=== PATIENT | male | born 1965 | race Caucasian/White ===

== ENCOUNTER → 2018-08-02 | Outpatient (CLI) | payer OTHER ==
--- NOTE | 2018-08-03 07:35 | RAD ---
EXAM: Hand,Left 3 Views CLINICAL HISTORY: M79.641, M79.642, M79.644, M79.645. TECHNIQUE: AP, lateral and oblique images of the left hand. COMPARISON STUDY: None FINDINGS: There are very mild osteoarthritic changes at the first metacarpal phalangeal joint and the distal interphalangeal joints. There are subtle periarticular osteophytes and subchondral sclerosis. There are no erosive abnormalities. No fracture or dislocation identified. 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 Electronically signed by: Kar Grey MD 08/03/2018 7:32 AM CDT
--- NOTE | 2018-08-03 07:37 | RAD ---
EXAM: Hand,Right 3 Views CLINICAL HISTORY: M79.641, M79.642, M79.644, M79.645. TECHNIQUE: AP, lateral and oblique images of the right hand. COMPARISON STUDY: None FINDINGS: Very mild osteoarthritic changes are present at the second and third distal interphalangeal joints without erosions. No fracture or dislocation identified. IMPRESSION: Very mild osteoarthritic changes of the second and third distal interphalangeal joints. Electronically signed by: Kar Grey MD 08/03/2018 7:34 AM CDT
== END ==
LOC: RAD 08:28
PROVIDERS: ATTEND Orthopaedic Surgery
DX: M79.641 Pain in right hand (principal); M79.644 Pain in right finger(s)

== ENCOUNTER 2018-08-09 05:37 | Day surgery (SDC) | payer OTHER ==
[2018-08-09] MEDS ORDERED: LACTATED RINGERS 1,000 ML ONE (05:50)
[2018-08-09] MEDS ORDERED: SODIUM CHL 0.9% 100ML MINI-BAG 100 ML IVPB ONE (05:50)
[2018-08-09] MEDS ORDERED: ceFAZolin SODIUM 1 GM VIAL ONE ×2 (05:51→07:08)
[2018-08-09] MEDS ORDERED: MIDAZOLAM INJ 2 MG/2 ML VIAL ONE (06:38)
[2018-08-09] MEDS ORDERED: fentaNYL CITRATE INJ 50 MCG/ML AMP ONE (06:38)
[2018-08-09] MEDS ORDERED: BUPIVACAINE 0.25% INJ 30 ML VIAL INJ ONE (06:39)
[2018-08-09] MEDS ORDERED: methylPREDNISolone ACETATE 80 MG/ML VIAL ONE (06:39)
[2018-08-09] MEDS ORDERED: LIDOCAINE 1% 50 ML VIAL INJ ONE (06:39)
[2018-08-09] MEDS ORDERED: PROPOFOL 200 MG/20 ML VIAL IV ONE (07:00)
[2018-08-09] MEDS ORDERED: LIDOCAINE 1% 10 ML VIAL INJ ONE (07:00)
[2018-08-09 07:08] VITALS: O2SAT 97
[2018-08-09] MEDS ORDERED: VANCOMYCIN HCL INJ 1,000 MG VIAL IVPB ONE (07:08)
[2018-08-09 08:53] VITALS: BP 130/70; TEMP 97
--- NOTE | 2018-08-15 09:57 | OP ---
DATE OF PROCEDURE: 08/09/18 PREOPERATIVE DIAGNOSIS: 1. Left third and fourth triggering. 2. Right third and fourth triggering. POSTOPERATIVE DIAGNOSIS: 1. Left third and fourth triggering. 2. Right third and fourth triggering. PROCEDURE: 1. Left third digit A1 sofy release. 2. Left fourth digit and right third and fourth digit injections. SURGEON: Matty Rossi MD. CLINICAL RESOURCE MANAGER: Reyes Trejo CST, SA-C. ANESTHESIA: Local with sedation. COMPLICATIONS: None. FINDINGS: Triggering at the A1 sofy of the left third, left fourth, right third and right fourth digits. INDICATION: Mr. Ventura has a history of triggering at the above digits. He uses a wheelchair and it was affecting him on a daily basis. Because of the issues associated with the wheelchair use, he elected to undergo both surgical intervention as well as nonsurgical intervention. After discussing the risks, benefits and alternatives to that, the patient has given informed consent for that. PROCEDURE: The patient was brought to the Operating Room and placed in the supine position. Sedation was administered and local anesthetic was injected into the operative area. A mixture of steroid and lidocaine was injected into the left fourth, right third and right fourth digits under sterile conditions. The left hand was sterilely prepped and draped. A transverse incision was made directly overlying the A1 sofy. Blunt dissection was carried down to the A1 sofy, which was sharply transected along its course. Following that, the finger was flexed and extended and there was no clicking, locking or popping. The wound was thoroughly irrigated and closed with Nylon suture. A sterile dressing was placed and the patient was taken to the Day Surgery Unit. POSTOPERATIVE PLAN: The patient has been encouraged to do range of motion of all the digits and will followup with us in two days. #[id number] [facility]
== END 2018-08-09 08:40 | disposition home or self-care (01) ==
LOC: AMB 05:37
PROVIDERS: ATTEND Orthopaedic Surgery
DX: M65.332 Trigger finger, left middle finger (principal); M65.331 Trigger finger, right middle finger; M65.342 Trigger finger, left ring finger; M65.341 Trigger finger, right ring finger; I10 Essential (primary) hypertension; E11.9 Type 2 diabetes mellitus without complications; Z88.8 Allergy status to other drugs, medicaments and biological substances; Z79.84 Long term (current) use of oral hypoglycemic drugs; Z79.899 Other long term (current) drug therapy
CPT/HCPCS: 01810; 26055; 36416; 80307; 82948; 87070; J0690; J1030; J2250; J3010; J3370; J3490; J7050; J7120

== ENCOUNTER → 2019-01-18 | Outpatient (CLI) | payer OTHER | LOC: GMAF 20:28 | PROVIDERS: ATTEND Nurse Practitioner Family | DX: R30.0 Dysuria (principal) ==

== ENCOUNTER → 2019-01-30 | Outpatient (CLI) | payer OTHER ==
--- NOTE | 2019-01-30 16:10 | CT ---
EXAM DESCRIPTION: Abdoment/Pelvis w/o Contrast CLINICAL HISTORY: 54 years Male, HEMATURIA COMPARISON: None available. TECHNIQUE: Contiguous 3 mm axial images were obtained from the lung bases to the level of the proximal femora without the administration of intravenous or oral contrast. Sagittal and coronal reconstructions were reviewed. FINDINGS: Limited evaluation of the solid organs due to the lack of intravenous contrast. THORAX: 4.3 mm noncalcified soft tissue nodule is identified in the right middle lobe. They measure pneumothorax otherwise appears normal. LIVER: The liver demonstrates normal size and density with no intrahepatic biliary ductal dilatation. GALLBLADDER: Multiple gallstones are noted PANCREAS: Appears normal with no cystic or solid lesions. SPLEEN: Normal ADRENAL GLANDS: Normal with no nodules or masses. KIDNEYS: Multiple calculi measuring up to 9 mm are identified throughout the left kidney. The right kidney appears normal. No evidence of bilateral ureteral calculi. STOMACH: Small hiatal hernia. The stomach is not well-distended limiting detailed evaluation. SMALL BOWEL: The small bowel loops demonstrate variable degrees of distention with no abnormal dilatation or other signs to suggest bowel obstruction. LARGE BOWEL: Mild constipation. The appendix is well-visualized and appears normal No evidence of free intraperitoneal air or fluid. RETROPERITONEUM: The abdominal aorta is nonaneurysmal with mild atherosclerosis. The inferior vena cava is normal in size and caliber. Few subcentimeter lymph nodes are identified in the mesentery. URINARY BLADDER:The urinary bladder is well-distended with no gross abnormality. The prostate gland measures 4.5 x 5.6 x 4.1 cm. The seminal vesicles appear normal. ADDITIONAL FINDINGS: None. BONES: Moderate to severe degenerative changes are identified in the visualized bones. Postsurgical changes are also identified. IMPRESSION: Nonobstructive nephrolithiasis of the left kidney measuring up to 9 mm. Cholelithiasis. 4.3 mm solid pulmonary nodule in the right middle lobe no routine follow-up imaging is recommended. These guidelines do not apply to immunocompromised patients and patients with cancer. Follow up in patients with significant comorbidities as clinically warranted. For lung cancer screening, adhere to Lung-RADS guidelines. Reference: Radiology. 2017; 284(1):228-43. This exam was performed according to our departmental dose-optimization program, which includes automated exposure control, adjustment of the mA and/or kV according to patient size and/or use of iterative reconstruction technique. Electronically signed by: Polina Cornejo MD 01/30/2019 4:08 PM CDT
== END ==
LOC: CT 15:10
PROVIDERS: ATTEND Family Medicine
DX: N20.0 Calculus of kidney (principal); K80.20 Calculus of gallbladder without cholecystitis without obstruction; R91.1 Solitary pulmonary nodule